=== PATIENT | male | born 1980 | race African-American/Black ===

== ENCOUNTER 2024-06-21 23:01 | Inpatient (IN) | payer MEDICARE, MEDICAID ==
[~2024-06-21] VITALS: Ht 198.1 cm; Wt 137.0 kg
[2024-06-21 23:48] LABS: Urine Bacteria None Seen /hpf (None Seen)
[2024-06-21 23:53] LABS: Basophils # (auto) 0.1 10 ^3/uL (0-0.2); Neutrophils # (auto) 4.3 10 ^3/uL (1.6-8.6); Red Blood Cells 4.95 10^6/uL (4.5-5.90)
[2024-06-21 23:55] LABS: Basophils % (auto) 0.7 % (0.0-2.0); Eosinophils # (auto) 0.1 10 ^3/uL (0-0.8); Eosinophils % (auto) 0.7 % (0.0-7.0); Lymphocytes # (auto) 2.9 10 ^3/uL (0.4-5.4); Lymphocytes % (auto) 37.4 % (10.0-50.0); Mean Corpuscular Volume 90.9 fL (80.0-100.0); Monocytes # (auto) 0.4 10 ^3/uL (0-1.3); Monocytes % (auto) 5.7 % (0.0-12.0); Neutrophils % (auto) 55.5 % (37.0-80.0); Nucleated Red Blood Cells % 0.3 %; Platelet Count (auto) 239 10^3/uL (140-450); Red Cell Distribution Width 13.6 % (11.8-14.3); White Blood Cell 7.7 10^3/uL (4.4-10.8)
[2024-06-22 00:10] LABS: Urine Blood Negative /uL (Negative); Urine Clarity Clear (Clear); Urine Color Colorless (Yellow); Urine Protein, UAD Negative (Negative); Urine Urobilinogen Normal (Negative); Urine WBC <1 /hpf (0 - 3); Urine pH 5.5 (5.0-9.0)
[2024-06-22 00:19] LABS: Hemoglobin 16.1 g/dL (13.5-17.5); Mean Corpuscular Hemoglobin 31.1 pg (28.0-32.0); Mean Corpuscular Hgb Conc. 34.5 g/dL (32.0-36.0)
[2024-06-22 00:58] LABS: Chloride 94 mmol/L (98-107); Sodium 123 mmol/L (136-145)
[2024-06-22 00:59] LABS: Anion Gap 8 (5-15); Calcium 9.6 mg/dL (8.7-10.4); Carbon Dioxide 21 mmol/L (20-31)
[2024-06-22 01:09] LABS: BUN/Creatinine Ratio 11.7 (10.0-20.0); Blood Urea Nitrogen 21 mg/dL (9-23)
[2024-06-22 01:15] LABS: Glucose 719 mg/dL (74-106)
[2024-06-22 01:50] VITALS: PULSE 110; RESP 23; O2SAT 97
[2024-06-22] MEDS: SODIUM CHLORIDE 0.9% 1,000 ML IV ONE ×2 (01:58→03:39)
[2024-06-22] MEDS: InsuLIN REG 1unit/0.01ml Soln (100units/ml) IV ONE (02:22)
[2024-06-22] MEDS ORDERED: DOCUSATE SOD 100 MG CAP PO PRN (07:15)
[2024-06-22] MEDS ORDERED: DEXTROSE (50%) 50ML SYRG IV PRN ×2 (07:15→14:30)
[2024-06-22] MEDS ORDERED: ONDANSETRON HCL 4 MG/2 ML VIAL IV PRN (07:15)
[2024-06-22] MEDS ORDERED: MORPHINE SULFATE INJ 2 MG/ml SYRG IV PRN (07:45)
[2024-06-22] MEDS ORDERED: NITROGLYCERIN 0.4 MG SL TAB SL PRN (07:45)
[2024-06-22 08:06] LABS: Basophils # (auto) 0 10 ^3/uL (0-0.2); Basophils % (auto) 0.3 % (0.0-2.0); Eosinophils # (auto) 0.1 10 ^3/uL (0-0.8); Eosinophils % (auto) 0.9 % (0.0-7.0); Hematocrit 42.1 % (41.0-53.0); Hemoglobin 15.3 g/dL (13.5-17.5); Lymphocytes # (auto) 2.4 10 ^3/uL (0.4-5.4); Lymphocytes % (auto) 35.3 % (10.0-50.0); Mean Corpuscular Hemoglobin 32.4 pg (28.0-32.0); Mean Corpuscular Hgb Conc. 36.3 g/dL (32.0-36.0); Mean Corpuscular Volume 89.3 fL (80.0-100.0); Monocytes # (auto) 0.5 10 ^3/uL (0-1.3); Neutrophils # (auto) 3.9 10 ^3/uL (1.6-8.6); Neutrophils % (auto) 56.5 % (37.0-80.0); Nucleated Red Blood Cells % 0.4 %; Platelet Count (auto) 161 10^3/uL (140-450); Red Blood Cells 4.71 10^6/uL (4.5-5.90); Red Cell Distribution Width 13.8 % (11.8-14.3); White Blood Cell 6.9 10^3/uL (4.4-10.8)
[2024-06-22] MEDS: InsuLIN REG 1unit/0.01ml Soln (100units/ml) SC SCH (08:18)
[2024-06-22 08:24] LABS: Albumin 4.5 g/dL (3.2-4.8); Alkaline Phosphatase 73 U/L (46-116); Anion Gap 22.00001 (5-15); Calcium 9.2 mg/dL (8.7-10.4); Chloride 99 mmol/L (98-107)
[2024-06-22] MEDS: SODIUM CHLORIDE 0.9% 1,000 ML IV SCH ×4 (08:24→20:59)
[2024-06-22] MEDS: ACCU-CHEK COMFORT CURVE STRIP VI SCH ×2 (08:24→15:06)
[2024-06-22 08:25] LABS: Bilirubin, Total 0.7 mg/dL (0.2-1.0); Total Protein 7.1 g/dL (5.7-8.2)
[2024-06-22 08:30] LABS: Sodium 131 mmol/L (136-145)
[2024-06-22 08:33] LABS: Carbon Dioxide < 10 mmol/L (20-31); Glucose 436 mg/dL (74-106)
[2024-06-22 09:14] VITALS: PULSE 97; RESP 23; O2SAT 98
[2024-06-22 09:26] LABS: BUN/Creatinine Ratio 8.8 (10.0-20.0)
[2024-06-22 09:28] LABS: Alanine Aminotransferase 26 U/L (7-40); Aspartate Aminotransferase 32 U/L (13-40); Blood Urea Nitrogen 13 mg/dL (9-23); Potassium 4.7 mmol/L (3.5-5.1)
[2024-06-22 14:46] LABS: Base Excess -1.7 mmol/L (-2.0-3.0)
[2024-06-22] MEDS: INSULIN DRIP 100 UNIT/100ML 100 ML IV SCH (14:56)
[2024-06-22 15:14] LABS: Basophils # (auto) 0 10 ^3/uL (0-0.2); Basophils % (auto) 0.5 % (0.0-2.0); Eosinophils # (auto) 0.1 10 ^3/uL (0-0.8); Eosinophils % (auto) 1.6 % (0.0-7.0); Hematocrit 40.9 % (41.0-53.0); Hemoglobin 14.8 g/dL (13.5-17.5); Lymphocytes # (auto) 2.1 10 ^3/uL (0.4-5.4); Lymphocytes % (auto) 35.4 % (10.0-50.0); Mean Corpuscular Hemoglobin 32.2 pg (28.0-32.0); Mean Corpuscular Hgb Conc. 36.1 g/dL (32.0-36.0); Mean Corpuscular Volume 89.1 fL (80.0-100.0); Monocytes # (auto) 0.4 10 ^3/uL (0-1.3); Monocytes % (auto) 6.9 % (0.0-12.0); Neutrophils # (auto) 3.3 10 ^3/uL (1.6-8.6); Neutrophils % (auto) 55.6 % (37.0-80.0); Nucleated Red Blood Cells % 0.6 %; Platelet Count (auto) 155 10^3/uL (140-450); Red Blood Cells 4.59 10^6/uL (4.5-5.90); Red Cell Distribution Width 13.8 % (11.8-14.3); White Blood Cell 5.9 10^3/uL (4.4-10.8)
[2024-06-22 16:25] LABS: Magnesium 2.1 mg/dL (1.6-2.6)
[2024-06-22 18:58] LABS: Chloride 106 mmol/L (98-107); Sodium 138 mmol/L (136-145)
[2024-06-22 18:59] LABS: Anion Gap 16 (5-15); Carbon Dioxide 16 mmol/L (20-31)
[2024-06-22 19:00] LABS: Calcium 9.1 mg/dL (8.7-10.4)
[2024-06-22 19:07] LABS: Glucose 244 mg/dL (74-106)
[2024-06-22 19:30] LABS: Potassium 3.9 mmol/L (3.5-5.1)
[2024-06-22 19:38] LABS: BUN/Creatinine Ratio 8.3 (10.0-20.0); Blood Urea Nitrogen 11 mg/dL (9-23)
[2024-06-22 20:00] VITALS: PULSE 105; RESP 13; O2SAT 92
[2024-06-22] MEDS: ACETAMINOPHEN 325 MG TAB PO PRN (21:51)
[2024-06-22 23:40] LABS: Chloride 105 mmol/L (98-107); Potassium 3.8 mmol/L (3.5-5.1); Sodium 134 mmol/L (136-145)
[2024-06-22 23:41] LABS: Anion Gap 8 (5-15); Carbon Dioxide 21 mmol/L (20-31)
[2024-06-22 23:46] LABS: BUN/Creatinine Ratio 8.8 (10.0-20.0); Blood Urea Nitrogen 12 mg/dL (9-23); Glucose 327 mg/dL (74-106)
[2024-06-23 03:05] LABS: Basophils # (auto) 0 10 ^3/uL (0-0.2); Basophils % (auto) 0.8 % (0.0-2.0); Eosinophils # (auto) 0.1 10 ^3/uL (0-0.8); Eosinophils % (auto) 1.9 % (0.0-7.0); Hematocrit 39.2 % (41.0-53.0); Hemoglobin 14.2 g/dL (13.5-17.5); Lymphocytes # (auto) 1.9 10 ^3/uL (0.4-5.4); Lymphocytes % (auto) 33.4 % (10.0-50.0); Mean Corpuscular Hemoglobin 31.9 pg (28.0-32.0); Mean Corpuscular Hgb Conc. 36.1 g/dL (32.0-36.0); Mean Corpuscular Volume 88.4 fL (80.0-100.0); Monocytes # (auto) 0.4 10 ^3/uL (0-1.3); Monocytes % (auto) 6.9 % (0.0-12.0); Neutrophils # (auto) 3.3 10 ^3/uL (1.6-8.6); Nucleated Red Blood Cells % 0.3 %; Platelet Count (auto) 146 10^3/uL (140-450); Red Blood Cells 4.44 10^6/uL (4.5-5.90); Red Cell Distribution Width 13.7 % (11.8-14.3); White Blood Cell 5.8 10^3/uL (4.4-10.8)
[2024-06-23 03:23] LABS: Alanine Aminotransferase 37 U/L (7-40); Albumin 4.1 g/dL (3.2-4.8); Alkaline Phosphatase 58 U/L (46-116); Anion Gap 13 (5-15); BUN/Creatinine Ratio 7.9 (10.0-20.0); Bilirubin, Total 0.6 mg/dL (0.2-1.0); Blood Urea Nitrogen 10 mg/dL (9-23); Carbon Dioxide 16 mmol/L (20-31); Chloride 106 mmol/L (98-107); Glucose 278 mg/dL (74-106); Potassium 3.6 mmol/L (3.5-5.1); Sodium 135 mmol/L (136-145)
[2024-06-23 03:43] LABS: Aspartate Aminotransferase 34 U/L (13-40)
[2024-06-23] MEDS ORDERED: DEXTROSE (50%) 50ML SYRG IV PRN ×2 (05:15→11:00)
[2024-06-23 07:20] VITALS: PULSE 87; RESP 13; O2SAT 97
[2024-06-23] MEDS: ACCU-CHEK COMFORT CURVE STRIP VI SCH ×2 (08:11→12:23)
[2024-06-23] MEDS: InsuLIN REG 1unit/0.01ml Soln (100units/ml) SC SCH ×2 (08:13→12:16)
[2024-06-23 09:00] VITALS: BP 151/97; PULSE 89; RESP 17; TEMP 98.3; O2SAT 97
[2024-06-23] MEDS ORDERED: AMLO1TAB22 PO (09:11)
[2024-06-23] MEDS ORDERED: BICT1TAB PO (09:11)
[2024-06-23] MEDS: BIKTARVY 50-200-25 MG TABLET PO SCH (10:00)
[2024-06-23 10:33] LABS: Chloride 105 mmol/L (98-107); Sodium 136 mmol/L (136-145)
[2024-06-23 10:34] LABS: Anion Gap 13 (5-15); Calcium 9.3 mg/dL (8.7-10.4); Carbon Dioxide 18 mmol/L (20-31)
[2024-06-23 10:39] LABS: BUN/Creatinine Ratio 5.3 (10.0-20.0); Blood Urea Nitrogen 6 mg/dL (9-23); Glucose 279 mg/dL (74-106)
[2024-06-23] MEDS: PANTOPRAZOLE 40 MG/10 ML VIAL INJ IV SCH (10:39)
[2024-06-23] MEDS: ENOXAPARIN SOD 60 MG/0.6 ML SYRINGE SC SCH (10:47)
[2024-06-23] MEDS: amLODIPine BESYLATE 5 MG TAB PO SCH (12:04)
[2024-06-23] MEDS: INSULIN LANTUS (GLARGINE) 1 /0.01ml (100units/ml) SC SCH (12:18)
[2024-06-23 13:00] VITALS: BP 125/71; PULSE 87; RESP 20; TEMP 98.2; O2SAT 99
[2024-06-23 15:27] LABS: Chloride 104 mmol/L (98-107); Potassium 4.1 mmol/L (3.5-5.1); Sodium 134 mmol/L (136-145)
[2024-06-23 15:28] LABS: Anion Gap 7 (5-15); Carbon Dioxide 23 mmol/L (20-31)
[2024-06-23 15:29] LABS: Calcium 9.4 mg/dL (8.7-10.4)
[2024-06-23 15:33] LABS: BUN/Creatinine Ratio 7.9 (10.0-20.0); Blood Urea Nitrogen 10 mg/dL (9-23); Glucose 334 mg/dL (74-106)
[2024-06-23 16:49] LABS: Urine Bacteria None Seen /hpf (None Seen)
[2024-06-23 17:00] VITALS: BP 121/74; PULSE 87; RESP 20; TEMP 97.7; O2SAT 95
[2024-06-23 17:15] LABS: Urine Blood Negative /uL (Negative); Urine Clarity Clear (Clear); Urine Color Light-Yellow (Yellow); Urine Protein, UAD Negative (Negative); Urine Specific Gravity 1.029 (1.001-1.035); Urine Urobilinogen Normal (Negative); Urine WBC <1 /hpf (0 - 3)
[2024-06-23 17:21] LABS: Protein, Urine 12.5 mg/dL (1-14)
[2024-06-23 17:23] LABS: Creatinine, Urine 83.01 mg/dL (30.0-125.0)
[2024-06-23 20:15] VITALS: PULSE 102; RESP 16; O2SAT 96
[2024-06-23 21:00] VITALS: BP 109/69; PULSE 96; RESP 18; TEMP 98.2; O2SAT 96
[2024-06-23] MEDS: HYDROcodone-ACET 5/325MG TAB PO PRN (22:25)
[2024-06-24] VITALS (10 sets, daily range): BP systolic 123–142; BP diastolic 68–87; PULSE 79–92; RESP 16–20; TEMP 97.7–98.5; O2SAT 96–100
[2024-06-24 06:53] LABS: Basophils # (auto) 0 10 ^3/uL (0-0.2); Basophils % (auto) 0.6 % (0.0-2.0); Eosinophils # (auto) 0.1 10 ^3/uL (0-0.8); Hematocrit 38.6 % (41.0-53.0); Hemoglobin 14.1 g/dL (13.5-17.5); Lymphocytes # (auto) 1.7 10 ^3/uL (0.4-5.4); Lymphocytes % (auto) 37.9 % (10.0-50.0); Mean Corpuscular Hemoglobin 32.3 pg (28.0-32.0); Mean Corpuscular Hgb Conc. 36.4 g/dL (32.0-36.0); Mean Corpuscular Volume 88.7 fL (80.0-100.0); Monocytes # (auto) 0.3 10 ^3/uL (0-1.3); Monocytes % (auto) 7.6 % (0.0-12.0); Neutrophils # (auto) 2.3 10 ^3/uL (1.6-8.6); Neutrophils % (auto) 51.9 % (37.0-80.0); Nucleated Red Blood Cells % 0.3 %; Platelet Count (auto) 150 10^3/uL (140-450); Red Blood Cells 4.35 10^6/uL (4.5-5.90); Red Cell Distribution Width 13.5 % (11.8-14.3); White Blood Cell 4.5 10^3/uL (4.4-10.8)
[2024-06-24 06:57] LABS: Chloride 106 mmol/L (98-107); Potassium 3.8 mmol/L (3.5-5.1); Sodium 134 mmol/L (136-145)
[2024-06-24 06:58] LABS: Anion Gap 9 (5-15); Calcium 8.9 mg/dL (8.7-10.4); Carbon Dioxide 19 mmol/L (20-31)
[2024-06-24 07:02] LABS: Uric Acid 6.2 mg/dL (3.7-9.2)
[2024-06-24 07:03] LABS: BUN/Creatinine Ratio 6.4 (10.0-20.0); Blood Urea Nitrogen 8 mg/dL (9-23); Glucose 240 mg/dL (74-106)
[2024-06-24 07:26] LABS: Phosphorus 2.6 mg/dL (2.4-5.1)
[2024-06-25] VITALS (7 sets, daily range): BP systolic 104–154; BP diastolic 68–87; PULSE 76–84; RESP 14–20; TEMP 36.6; O2SAT 96–100
[2024-06-25] MEDS: ACCU-CHEK COMFORT CURVE STRIP VI SCH (06:25)
[2024-06-25] MEDS: InsuLIN REG 1unit/0.01ml Soln (100units/ml) SC SCH (06:25)
[2024-06-25 07:40] LABS: Basophils # (auto) 0 10 ^3/uL (0-0.2); Basophils % (auto) 0.5 % (0.0-2.0); Eosinophils # (auto) 0.1 10 ^3/uL (0-0.8); Eosinophils % (auto) 1.9 % (0.0-7.0); Hematocrit 38.9 % (41.0-53.0); Hemoglobin 13.8 g/dL (13.5-17.5); Lymphocytes # (auto) 1.8 10 ^3/uL (0.4-5.4); Mean Corpuscular Hemoglobin 31.3 pg (28.0-32.0); Mean Corpuscular Hgb Conc. 35.4 g/dL (32.0-36.0); Mean Corpuscular Volume 88.4 fL (80.0-100.0); Monocytes # (auto) 0.4 10 ^3/uL (0-1.3); Monocytes % (auto) 7.8 % (0.0-12.0); Neutrophils # (auto) 2.3 10 ^3/uL (1.6-8.6); Neutrophils % (auto) 50.8 % (37.0-80.0); Nucleated Red Blood Cells % 0.1 %; Platelet Count (auto) 146 10^3/uL (140-450); Red Cell Distribution Width 13.5 % (11.8-14.3); White Blood Cell 4.6 10^3/uL (4.4-10.8)
[2024-06-25 07:55] LABS: Anion Gap 11 (5-15); Carbon Dioxide 22 mmol/L (20-31); Chloride 103 mmol/L (98-107); Potassium 3.6 mmol/L (3.5-5.1); Sodium 136 mmol/L (136-145)
[2024-06-25 07:56] LABS: Calcium 9.2 mg/dL (8.7-10.4)
[2024-06-25 08:01] LABS: BUN/Creatinine Ratio 7.3 (10.0-20.0); Blood Urea Nitrogen 9 mg/dL (9-23); Glucose 268 mg/dL (74-106)
[2024-06-25 09:05] LABS: Hepatitis B Surface Antigen Negative (Negative)
[2024-06-25 09:27] LABS: Hepatitis C Antibody Negative (Negative)
[2024-06-25] MEDS: INSULIN LANTUS (GLARGINE) 1 /0.01ml (100units/ml) SC SCH (10:00)
[2024-06-25] MEDS ORDERED: [UNRECOGNIZED DRUG - CODE] XX (13:37)
[2024-06-25] MEDS ORDERED: BLOO1KIT60 XX (13:37)
[2024-06-25] MEDS ORDERED: LANC-336 XX (13:37)
[2024-06-25] MEDS ORDERED: INSLANTI SC (13:37)
[2024-06-25] MEDS ORDERED: INSREGI SC (13:37)
[2024-06-26 09:07] LABS: QuantiFERON-TB Gold Plus Negative (Negative)
[2024-06-26 10:07] LABS: % CD 4 Pos Lymph 23.9 % (30.8-58.5); % CD 8 Pos Lymph 54.4 % (12.0-35.5); CD4/CD8 Ratio 0.44 (0.92-3.72)
[2024-06-26 13:07] LABS: % CD 3 Pos Lymph 70.4 % (57.5-86.2); % CD 4 Pos Lymph 20.6 % (30.8-58.5); % CD 8 Pos Lymph 50.6 % (12.0-35.5); % CD19+ Lymphs 15.5 % (3.3-25.4); CD4/CD8 Ratio 0.41 (0.92-3.72)
[2024-06-27 01:05] LABS: Chlamydia Trachomatis, NAA Negative (Negative); Neisseria gonorrhoeae, NAA Negative (Negative)
== END 2024-06-25 16:43 | disposition home or self-care (01) | DRG 637 ==
LOC: ER 23:01 → TELE 06-22 07:37 → TELE-CENTR 06-23 08:32
PROVIDERS: ADMIT Internal Medicine; ATTEND Internal Medicine
DX: E11.10 Type 2 diabetes mellitus with ketoacidosis without coma (principal); N17.0 Acute kidney failure with tubular necrosis; B20 Human immunodeficiency virus [HIV] disease; C85.90 Non-Hodgkin lymphoma, unspecified, unspecified site; E87.1 Hypo-osmolality and hyponatremia; E86.0 Dehydration; R63.1 Polydipsia; N20.0 Calculus of kidney; I12.9 Hypertensive chronic kidney disease with stage 1 through stage 4 chronic kidney disease, or unspecified chronic kidney disease; E11.22 Type 2 diabetes mellitus with diabetic chronic kidney disease; N18.2 Chronic kidney disease, stage 2 (mild); Z91.041 Radiographic dye allergy status; Z83.3 Family history of diabetes mellitus; Z79.899 Other long term (current) drug therapy
CPT/HCPCS: 36415; 36600; 71045; 76775; 80048; 80053; 81001; 82010; 82306; 82570; 82805; 82962; 83036; 83735; 83930; 84100; 84156; 84300; 84550; 85025; 86355; 86359; 86360; 86592; 86803; 87040; 87340; 87536; 96361; 96374; 99291; G0378; J1815; J2470

== ENCOUNTER 2024-09-12 21:26 | Emergency (ER) | payer MEDICARE, MEDICAID ==
[~2024-09-12] VITALS: Ht 198.1 cm; Wt 127.0 kg
[~2024-09-12 21:26] MED LIST: AMLO1TAB22 PO; BICT1TAB PO; BLOO1KIT60 XX; INSLANTI SC; INSREGI SC; LANC-336 XX; [UNRECOGNIZED DRUG - CODE] XX
[2024-09-12 22:24] LABS: Basophils # (auto) 0 10 ^3/uL (0-0.2); Basophils % (auto) 0.7 % (0.0-2.0); Eosinophils # (auto) 0.1 10 ^3/uL (0-0.8); Eosinophils % (auto) 1.3 % (0.0-7.0); Hematocrit 43.9 % (41.0-53.0); Hemoglobin 15.1 g/dL (13.5-17.5); Lymphocytes # (auto) 2.6 10 ^3/uL (0.4-5.4); Lymphocytes % (auto) 41.8 % (10.0-50.0); Mean Corpuscular Hemoglobin 30.5 pg (28.0-32.0); Mean Corpuscular Hgb Conc. 34.5 g/dL (32.0-36.0); Mean Corpuscular Volume 88.4 fL (80.0-100.0); Monocytes # (auto) 0.4 10 ^3/uL (0-1.3); Monocytes % (auto) 5.9 % (0.0-12.0); Neutrophils # (auto) 3.1 10 ^3/uL (1.6-8.6); Neutrophils % (auto) 50.3 % (37.0-80.0); Nucleated Red Blood Cells % 0.1 %; Platelet Count (auto) 159 10^3/uL (140-450); Red Blood Cells 4.96 10^6/uL (4.5-5.90); Red Cell Distribution Width 13.1 % (11.8-14.3); White Blood Cell 6.2 10^3/uL (4.4-10.8)
[2024-09-12 22:43] LABS: Alanine Aminotransferase 32 U/L (7-40); Albumin 4.7 g/dL (3.2-4.8); Alkaline Phosphatase 91 U/L (46-116); Anion Gap 10 (5-15); Aspartate Aminotransferase 15 U/L (13-40); Calcium 9.9 mg/dL (8.7-10.4); Carbon Dioxide 25 mmol/L (20-31); Chloride 99 mmol/L (98-107); Potassium 4.3 mmol/L (3.5-5.1); Total Protein 7.8 g/dL (5.7-8.2)
--- NOTE | 2024-09-12 22:48 | ED.PDOC ---
History of Present Illness HPI Comments A 44 year old male presents to the ED with a chief complaint of high blood sugar onset today. Patient states he noticed increased urination since last night, checked BS today and it was 465. Patient noticed he was also experiencing dizziness and fatigue. Upon assessment patient's BS was 404. Patient states he has been taking his medication. He has a past medical history of DM, HTN, HLD, Cancer. Denies nausea, vomiting, diarrhea, abdominal pain, headache, chest pain, shortness of breath. No other symptoms or modifying factors present at this time. Chief Complaint: Hyperglycemia Time Seen by MD: 22:41 Reviewed Notes: Medications, Allergies Allergies: Coded Allergies: Red Dye #40 (Allura Red) (Verified Allergy, Unknown, 06/22/24) Uncoded Allergies: RED DYE (Allergy, Unknown, 06/21/24) Home Meds Active Scripts Insulin Syringe/Needle U-100 (B-D Insulin Syringe Ultra 30G X 1/2" 1 ml) 1 Mis Mis, MIS XX TID, #200 . Prov:ERENDIRA WHITAKER RESIDENT 06/25/24 Lancets (Advocate Lancets) Lancets Mis, BOTTLE XX TID, #200 user Prov:ERENDIRA WHITAKER RESIDENT 06/25/24 Blood Glucose Monitoring Suppl (D-Care Glucometer Kit/Glu W/Device) 1 Kit Kit, K IT XX Q6HR, #1 0 Refills Please use glucometer to measure serum glucose every 6 hour. Prov:ERENDIRA WHITAKER RESIDENT 06/25/24 Insulin Regular (Human) (Novolin R) 100 Unit/Ml Inj, 0 UNITS SC ACHS for 60 Days, #5 INJ Please use insulin Regular 3 times a day before meal. Follow below instruction. Please check glucose via glucometer 3 times a day. If blood glucose is between 150 and 200 please administer 2 units of regular insulin. If blood glucose is between 200-250 please administer 4 units of regular insulin. If blood sugar is between 250 and 300 please administer 8 units of regular insulin. If blood sugar between 300-350 please administered 10 units of regular insulin. If blood sugars between 350 and 400 please administer 12 units of regular insulin. If blood sugars greater than 400 please talk to DrAbi/come to the hospital. Prov:ERENDIRA WHITAKER RESIDENT 06/25/24 Insulin Glargine (Lantus) 100 Unit/Ml Inj, 25 UNITS SC DAILY@1000 for 60 Days, #60 INJ Prov:ERENDIRA WHITAKER RESIDENT 06/25/24 Reported Medications Amlodipine Besylate (Amlodipine Besylate) 5 Mg Tab, 1 TAB PO DAILY 06/23/24 Cnkmciqjxxm-Plqoubvzdzmit-Ibkt (Biktarvy 50-200-25 mg) 1 Tab Tab, 1 TAB PO DAILY 06/23/24 Information Source: Patient Mode of Arrival: Ambulatory Severity: Moderate Timing: Hours Duration: Since onset Prehospital treatment: None Past Medical History PAST MEDICAL HISTORY: Cancer, DM, HIV, HTN Surgical History: Denies all surgeries Family History Family History: Reviewed,noncontributory to illness Social History Smoker: Non-Smoker Alcohol: Denies ETOH Use Drugs: Denies Drug Use Lives In: Home Constitutional: reports: fatigue; denies: chills, diaphoresis, fever, malaise, sweats, weakness, others EENTM: denies: blurred vision, double vision, ear bleeding, ear discharge, ear drainage, ear pain, ear ringing, eye pain, eye redness, hearing loss, mouth pain, mouth swelling, nasal discharge, nose bleeding, nose congestion, nose pain, photophobia, tearing, throat pain, throat swelling, voice changes, others Respiratory: denies: cough, hemoptysis, orthopnea, SOB at rest, shortness of breath, SOB with excertion, stridor, wheezing, others Cardiovascular: denies: chest pain, dizzy spells, diaphoresis, Dyspnea on exertion, edema, irregular heart beat, left arm pain, lightheadedness, palpitations, PND, syncope, others Gastrointestinal: denies: abdomen distended, abdominal pain, blood streaked bowels, constipated, diarrhea, dysphagia, difficulty swallowing, hematemesis, melena, nausea, poor appetite, poor fluid intake, rectal bleeding, rectal pain, vomiting, others Genitourinary: reports: others (increased urination); denies: burning, dysuria, flank pain, frequency, hematuria, incontinence, penile discharge, penile sore, pain, testicle pain, testicle swelling, urgency Neurological: reports: dizziness; denies: fainting, headache, left sided numbness, left sided weakness, numbness, paresthesia, pre-existing deficit, right sided numbness, right sided weakness, seizure, speech problems, tingling, tremors, weakness, others Musculoskeletal: denies: back pain, gout, joint pain, joint swelling, muscle pain, muscle stiffness, neck pain, others Integumetry: denies: bruises, change in color, change in hair/nails, dryness, laceration, lesions, lumps, rash, wounds, others Allergic/Immunocompromised: denies: Difficulty Healing, Frequent Infections, Hives, Itching, others Hematologic/Lymphatic: denies: anemia, blood clots, easy bleeding, easy bruising, swollen glands, others Endocrine: denies: excessive hunger, excessive sweating, excessive thirst, excessive urination, flushing, intolerance to cold, intolerance to heat, unexplained weight gain, unexplained weight loss, others Psychiatric: denies: anxiety, bipolar disorder, depression, hopeless, panic disorder, schizophrenia, sleepless, suicidal, others All Other Systems: Reviewed and Negative Physical Exam General Appearance: No Apparent Distress, Normal HEENT: Normal ENT Inspection, Pharynx Normal, TMs Normal Neck: Full Range of Motion, Non-Tender, Normal, Normal Inspection Respiratory: Chest Non-Tender, Lungs Clear, No Accessory Muscle Use, No Respiratory Distress, Normal Breath Sounds Cardiovascular: No Edema, No JVD, No Murmur, No Gallop, Normal Peripheral Pulses, Regular Rate/Rhythm Breast Exam: Deferred Gastrointestinal: No Organomegaly, Non Tender, No Pulsatile Mass, Normal Bowel Sounds, Soft Genitalia: Deferred Pelvic: Deferred Rectal: Deferred Extremities: No calf tenderness, Normal capillary refill, Normal inspection, Normal range of motion, Non-tender, No pedal edema Musculoskeletal : Apperance: Normal Neurologic: Alert, ethics officer II-XII nml as Tested, No Motor Deficits, Normal Affect, Normal Mood, No Sensory Deficits Cerebellar Function: Normal Reflexes: Normal Skin: Dry, Normal Color, Warm Lymphatic: No Adenopathy Was a procedure done? Was a procedure done?: No Differential Dx Considerations may include: DDX includes but not limited to : DKA, hyperosmolar syndrome, acute renal failure, dehydration, sepsis and others X-Ray, Labs, Meds, VS Vital Signs Date Time Temp Pulse Resp B/P (MAP) Pulse Ox O2 Delivery O2 Flow Rate FiO2 09/13/24 00:07 98.8 84 15 113/82 (92) 97 98.8 09/12/24 23:45 Room Air* 0 21 09/12/24 21:26 98.9 89 18 129/80 (96) 97 Lab Test 09/12/24 23:50 09/12/24 22:05 09/12/24 22:00 Range/Units POC Glucose 390 H 70-106 mg/dl Blood Gas Specimen Type Venous Blood Gas Sample Site Vbg - n/a Blood Gas Patient Temperature 37.0 Arterial Blood Date Drawn [id number] Marcelo Test N/a Venous Blood pH 7.413 7.320-7.430 Venous Blood pCO2 at Patient Temp 40.7 38.0-54.0 mmHg Venous Blood pO2 at Patient Temp 40.5 23.0-48.0 mmHg Venous Blood HCO3 25.4 22.0-29.0 mmol/L Venous Bld O2 Saturation (Measured) 78.5 60.0-85.0 % Venous Blood Base Excess 0.8 -2.0-3.0 mmol/L Venous Blood Total Hemoglobin 15.6 13.5-17.5 g/dL Venous Blood Oxyhemoglobin 76.5 0.0-79.0 % Venous Blood Carboxyhemoglobin 2.2 H 0.5-1.5 % Venous Blood Methemoglobin 0.3 0.0-1.5 % Blood Gas Modality Room air FiO2 % 21.0 Specimen Drawn By Madisyn augustin White Blood Count 6.2 4.4-10.8 10^3/uL Red Blood Count 4.96 4.5-5.90 10^6/uL Hemoglobin 15.1 13.5-17.5 g/dL Hematocrit 43.9 41.0-53.0 % Mean Corpuscular Volume 88.4 80.0-100.0 fL Mean Corpuscular Hemoglobin 30.5 28.0-32.0 pg Mean Corpuscular Hemoglobin Concent 34.5 32.0-36.0 g/dL Red Cell Distribution Width 13.1 11.8-14.3 % Platelet Count 159 140-450 10^3/uL Mean Platelet Volume 10.1 6.9-10.8 fL Neutrophils (%) (Auto) 50.3 37.0-80.0 % Lymphocytes (%) (Auto) 41.8 10.0-50.0 % Monocytes (%) (Auto) 5.9 0.0-12.0 % Eosinophils (%) (Auto) 1.3 0.0-7.0 % Basophils (%) (Auto) 0.7 0.0-2.0 % Neutrophils # (Auto) 3.1 1.6-8.6 10 ^3/uL Lymphocytes # (Auto) 2.6 0.4-5.4 10 ^3/uL Monocytes # (Auto) 0.4 0-1.3 10 ^3/uL Eosinophils # (Auto) 0.1 0-0.8 10 ^3/uL Basophils # (Auto) 0 0-0.2 10 ^3/uL Nucleated Red Blood Cells 0.1 % Sodium Level 134 L 136-145 mmol/L Potassium Level 4.3 3.5-5.1 mmol/L Chloride Level 99 98-107 mmol/L Carbon Dioxide Level 25 20-31 mmol/L Anion Gap 10 5-15 Blood Urea Nitrogen 15 9-23 mg/dL Creatinine 1.55 H 0.700-1.30 mg/dL Glomerular Filtration Rate Calc 57 >90 mL/min BUN/Creatinine Ratio 9.7 L 10.0-20.0 Serum Glucose 433 *H 74-106 mg/dL Calcium Level 9.9 8.7-10.4 mg/dL Total Bilirubin 1.0 0.2-1.0 mg/dL Aspartate Amino Transferase (AST) 15 13-40 U/L Alanine Aminotransferase (ALT) 32 7-40 U/L Alkaline Phosphatase 91 46-116 U/L Total Protein 7.8 5.7-8.2 g/dL Albumin 4.7 3.2-4.8 g/dL Current Medications Medications (Trade) Dose Ordered Sig/Tory Route Start Time Stop Time Status Last Admin Sodium Chloride 1,000 ml @ 1,000 mls/hr Q1H ONCE IV 09/12/24 22:00 09/12/24 22:59 DC 09/12/24 23:54 Insulin Human Regular (InsuLIN R) 4 units ONCE ONCE IV 09/12/24 22:15 09/12/24 22:16 DC 09/13/24 00:05 Time of 1ST Reevaluation: 23:11 Reevaluation 1ST: Unchanged Time of 2ND Reevaluation: 01:00 Reevaluation 2ND: Improved Patient Education/Counseling: Diagnosis, Treatment, Prognosis Family Education/Counseling: No Family Present Additional Information I reviewed the following notes from patient's past medical encounters: The following tests were ordered, and results were reviewed by me: CBC, CMP, VBG Additional Information was gathered from interviewing the following independent historians: NONE I reviewed and agreed with the following test results read by other providers: none I discussed treatment and results with medical personnel and: patient Departure 1 Departure Time of Disposition: 01:00 Impression: Primary Impression: Hyperglycemia due to diabetes mellitus Additional Impression: Polydipsia Disposition: HOME / SELF CARE / HOMELESS Condition: Stable Discharged With: Self Critical Care Note Critical Care Time?: No Stability Stability form required: No I personally scribed for BRETT VYAS MD ([email or web address]) on 09/12/24 at 22:48. Electronically submitted by Daisy Brooks ([email or web address]). I personally scribed for BRETT VYAS MD ([email or web address]) on 09/12/24 at 22:50. Electronically submitted by Daisy Brooks ([email or web address]). I personally scribed for BRETT VYAS MD ([email or web address]) on 09/12/24 at 22:52. Electronically submitted by Daisy Brooks ([email or web address]). BRETT VYAS MD Sep 12, 2024 22:48
[2024-09-12 23:04] LABS: Sodium 134 mmol/L (136-145)
[2024-09-12 23:06] LABS: Glucose 433 mg/dL (74-106)
[2024-09-12 23:07] LABS: BUN/Creatinine Ratio 9.7 (10.0-20.0); Blood Urea Nitrogen 15 mg/dL (9-23)
[2024-09-12] MEDS: SODIUM CHLORIDE 0.9% 1,000 ML IV ONE (23:54)
[2024-09-13] MEDS: InsuLIN REG 1unit/0.01ml Soln (100units/ml) IV ONE (00:05)
[2024-09-13 00:07] VITALS: BP 113/82; PULSE 84; RESP 15; TEMP 98.8; O2SAT 97
[2024-09-14] MEDS ORDERED: INSU100I61 SC ×2 (14:46)
[2024-09-14] MEDS ORDERED: EMPA1TAB PO ×2 (14:46)
[2024-09-14] MEDS ORDERED: METF-489 PO ×2 (14:46)
[2024-09-14] MEDS ORDERED: INSU100I67 SC ×2 (14:46)
== END 2024-09-13 00:32 | disposition home or self-care (01) ==
LOC: ER 21:26
DX: E11.65 Type 2 diabetes mellitus with hyperglycemia (principal); R63.1 Polydipsia; I10 Essential (primary) hypertension; E78.5 Hyperlipidemia, unspecified; Z85.9 Personal history of malignant neoplasm, unspecified; Z79.4 Long term (current) use of insulin; Z79.624 Long term (current) use of inhibitors of nucleotide synthesis; Z79.899 Other long term (current) drug therapy; Z91.09 Other allergy status, other than to drugs and biological substances
CPT/HCPCS: 36415; 36600; 80053; 82805; 82962; 85025; 96361; 96374; 99283; J1815; J7030

== ENCOUNTER 2024-09-13 11:55 | Inpatient (IN) | payer MEDICARE, MEDICAID ==
[~2024-09-13] VITALS: Ht 198.1 cm; Wt 128.8 kg
--- NOTE | 2024-09-13 12:37 | ED.PDOC ---
History of Present Illness HPI Comments 44-year-old male came in because abnormal labs. His foot doctor called him stating that he had abnormal labs which was done three days ago. Patient does have a history of diabetes. He has been having problem with his blood sugar for the past three days. He did come to this ER yesterday for high blood sugar for which he was treated and discharged. He comes back today because the foot doctor called him in this morning stating that his labs were abnormal and to go to the nearest ER. Denies any symptoms. Chief Complaint: Abnormal LAB's Time Seen by MD: 12:19 Reviewed Notes: Nurses Notes, Medications, Allergies Allergies: Coded Allergies: Red Dye #40 (Allura Red) (Verified Allergy, Unknown, 06/22/24) Uncoded Allergies: RED DYE (Allergy, Unknown, 06/21/24) Home Meds Active Scripts Insulin Syringe/Needle U-100 (B-D Insulin Syringe Ultra 30G X 1/2" 1 ml) 1 Mis Mis, MIS XX TID, #200 . Prov:ERENDIRA WHITAKER RESIDENT 06/25/24 Lancets (Advocate Lancets) Lancets Mis, BOTTLE XX TID, #200 user Prov:ERENDIRA WHITAKER RESIDENT 06/25/24 Blood Glucose Monitoring Suppl (D-Care Glucometer Kit/Glu W/Device) 1 Kit Kit, KIT XX Q6HR, #1 0 Refills Please use glucometer to measure serum glucose every 6 hour. Prov:ERENDIRA WHTIAKER RESIDENT 06/25/24 Insulin Regular (Human) (Novolin R) 100 Unit/Ml Inj, 0 UNITS SC ACHS for 60 Days, #5 INJ Please use insulin Regular 3 times a day before meal. Follow below instruction. Please check glucose via glucometer 3 times a day. If blood glucose is between 150 and 200 please administer 2 units of regular insulin. If blood glucose is between 200-250 please administer 4 units of regular insulin. If blood sugar is between 250 and 300 please administer 8 units of regular insulin. If blood sugar between 300-350 please administered 10 units of regular insulin. If blood sugars between 350 and 400 please administer 12 units of regular insulin. If blood sugars greater than 400 please talk to /come to the hospital. Prov:ERENDIRA WHITAKER RESIDENT 06/25/24 Insulin Glargine (Lantus) 100 Unit/Ml Inj, 25 UNITS SC DAILY@1000 for 60 Days, #60 INJ Prov:ERENDIRA WHITAKER RESIDENT 06/25/24 Reported Medications Amlodipine Besylate (Amlodipine Besylate) 5 Mg Tab, 1 TAB PO DAILY 06/23/24 Whhpofzlpsm-Ifemkjykcspdh-Lhzh (Biktarvy 50-200-25 mg) 1 Tab Tab, 1 TAB PO DAILY 06/23/24 Information Source: Patient Mode of Arrival: Ambulatory Severity: Moderate Timing: Days Duration: Since onset Past Medical History PAST MEDICAL HISTORY: Cancer, DM, HIV, HTN Surgical History: Denies all surgeries Family History Family History: Reviewed,noncontributory to illness Social History Smoker: Non-Smoker Alcohol: Denies ETOH Use Drugs: Denies Drug Use Lives In: Home Constitutional: denies: chills, diaphoresis, fatigue, fever, malaise, sweats, weakness, others EENTM: denies: blurred vision, double vision, ear bleeding, ear discharge, ear drainage, ear pain, ear ringing, eye pain, eye redness, hearing loss, mouth pain, mouth swelling, nasal discharge, nose bleeding, nose congestion, nose pain, photophobia, tearing, throat pain, throat swelling, voice changes, others Respiratory: denies: cough, hemoptysis, orthopnea, SOB at rest, shortness of breath, SOB with excertion, stridor, wheezing, others Cardiovascular: denies: chest pain, dizzy spells, diaphoresis, Dyspnea on exertion, edema, irregular heart beat, left arm pain, lightheadedness, palpitations, PND, syncope, others Gastrointestinal: denies: abdomen distended, abdominal pain, blood streaked bowels, constipated, diarrhea, dysphagia, difficulty swallowing, hematemesis, melena, nausea, poor appetite, poor fluid intake, rectal bleeding, rectal pain, vomiting, others Genitourinary: denies: burning, dysuria, flank pain, frequency, hematuria, incontinence, penile discharge, penile sore, pain, testicle pain, testicle swelling, urgency, others Neurological: denies: dizziness, fainting, headache, left sided numbness, left sided weakness, numbness, paresthesia, pre-existing deficit, right sided numbness, right sided weakness, seizure, speech problems, tingling, tremors, weakness, others Musculoskeletal: denies: back pain, gout, joint pain, joint swelling, muscle pain, muscle stiffness, neck pain, others Integumetry: denies: bruises, change in color, change in hair/nails, dryness, laceration, lesions, lumps, rash, wounds, others Allergic/Immunocompromised: denies: Difficulty Healing, Frequent Infections, Hives, Itching, others Hematologic/Lymphatic: denies: anemia, blood clots, easy bleeding, easy bruising, swollen glands, others Endocrine: denies: excessive hunger, excessive sweating, excessive thirst, excessive urination, flushing, intolerance to cold, intolerance to heat, unexplained weight gain, unexplained weight loss, others Psychiatric: denies: anxiety, bipolar disorder, depression, hopeless, panic disorder, schizophrenia, sleepless, suicidal, others Physical Exam General Appearance: Moderate Distress HEENT: Normal ENT Inspection, Pharynx Normal, TMs Normal Neck: Full Range of Motion, Non-Tender, Normal, Normal Inspection Respiratory: Chest Non-Tender, Lungs Clear, No Accessory Muscle Use, No Respiratory Distress, Normal Breath Sounds Cardiovascular: No Edema, No JVD, No Murmur, No Gallop, Normal Peripheral Pulses, Regular Rate/Rhythm Breast Exam: Deferred Gastrointestinal: No Organomegaly, Non Tender, No Pulsatile Mass, Normal Bowel Sounds, Soft Genitalia: Deferred Pelvic: Deferred Rectal: Deferred Extremities: No calf tenderness, Normal capillary refill, Normal inspection, Normal range of motion, Non-tender, No pedal edema Musculoskeletal : Apperance: Normal Neurologic: Alert, lumber press operator II-XII nml as Tested, No Motor Deficits, Normal Affect, Normal Mood, No Sensory Deficits Cerebellar Function: Normal Reflexes: Normal Skin: Dry, Normal Color, Warm Peripheral Pulses: 3+ Radial (R), 3+ Radial (L) Lymphatic: No Adenopathy Was a procedure done? Was a procedure done?: No Differential Dx Considerations may include: Hyperglycemia Electrolyte imbalance X-Ray, Labs, Meds, VS Vital Signs Date Time Temp Pulse Resp B/P (MAP) Pulse Ox O2 Delivery O2 Flow Rate FiO2 09/13/24 12:29 97.0 92 16 134/82 (99) 96 Lab Test 09/13/24 12:56 09/13/24 12:27 Range/Units White Blood Count 5.7 4.4-10.8 10^3/uL Red Blood Count 4.84 4.5-5.90 10^6/uL Hemoglobin 14.6 13.5-17.5 g/dL Hematocrit 43.0 41.0-53.0 % Mean Corpuscular Volume 89.0 80.0-100.0 fL Mean Corpuscular Hemoglobin 30.1 28.0-32.0 pg Mean Corpuscular Hemoglobin Concent 33.9 32.0-36.0 g/dL Red Cell Distribution Width 13.2 11.8-14.3 % Platelet Count 151 140-450 10^3/uL Mean Platelet Volume 9.9 6.9-10.8 fL Neutrophils (%) (Auto) 51.2 37.0-80.0 % Lymphocytes (%) (Auto) 41.5 10.0-50.0 % Monocytes (%) (Auto) 5.4 0.0-12.0 % Eosinophils (%) (Auto) 1.3 0.0-7.0 % Basophils (%) (Auto) 0.6 0.0-2.0 % Neutrophils # (Auto) 2.9 1.6-8.6 10 ^3/uL Lymphocytes # (Auto) 2.3 0.4-5.4 10 ^3/uL Monocytes # (Auto) 0.3 0-1.3 10 ^3/uL Eosinophils # (Auto) 0.1 0-0.8 10 ^3/uL Basophils # (Auto) 0 0-0.2 10 ^3/uL Nucleated Red Blood Cells 0.2 % Sodium Level 136 136-145 mmol/L Potassium Level 3.9 3.5-5.1 mmol/L Chloride Level 104 98-107 mmol/L Carbon Dioxide Level 25 20-31 mmol/L Anion Gap 7 5-15 Blood Urea Nitrogen 13 9-23 mg/dL Creatinine 1.38 H 0.700-1.30 mg/dL Glomerular Filtration Rate Calc 65 >90 mL/min BUN/Creatinine Ratio 9.4 L 10.0-20.0 Serum Glucose 297 #H 74-106 mg/dL Calcium Level 9.7 8.7-10.4 mg/dL POC Glucose 331 H 70-106 mg/dl Patient alert. Came in for abnormal labs. Vitals stable. Answering all questions pain Reviewed his labs from Tuesday. His potassium was 5.9 with blood sugar of more than 600. Explained to the patient. Continue cardiac monitoring. Time of 1ST Reevaluation: 12:35 Reevaluation 1ST: Unchanged Patient Education/Counseling: Diagnosis, Treatment, Prognosis Family Education/Counseling: No Family Present Departure 1 Departure Time of Disposition: 12:36 Impression: Primary Impression: Uncontrolled diabetes mellitus Qualified Codes: E13.65 - Other specified diabetes mellitus with hyperglycemia Disposition: ADMITTED INPATIENT Admit to: Med Surg Condition: Guarded Critical Care Note Critical Care Time?: Yes (90 min-critical care time only) Stability Stability form required: No Heart Score Heart Score: Heart Score Response (Comments) Value History N/A 0 EKG N/A 0 Age N/A 0 Risk Factors N/A 0 Troponin N/A 0 Total 0 MARCUS SHANNON MD Sep 13, 2024 12:37
[2024-09-13 13:31] LABS: Basophils # (auto) 0 10 ^3/uL (0-0.2); Basophils % (auto) 0.6 % (0.0-2.0); Eosinophils # (auto) 0.1 10 ^3/uL (0-0.8); Eosinophils % (auto) 1.3 % (0.0-7.0); Hemoglobin 14.6 g/dL (13.5-17.5); Lymphocytes # (auto) 2.3 10 ^3/uL (0.4-5.4); Lymphocytes % (auto) 41.5 % (10.0-50.0); Mean Corpuscular Hemoglobin 30.1 pg (28.0-32.0); Mean Corpuscular Hgb Conc. 33.9 g/dL (32.0-36.0); Monocytes # (auto) 0.3 10 ^3/uL (0-1.3); Monocytes % (auto) 5.4 % (0.0-12.0); Neutrophils # (auto) 2.9 10 ^3/uL (1.6-8.6); Neutrophils % (auto) 51.2 % (37.0-80.0); Nucleated Red Blood Cells % 0.2 %; Platelet Count (auto) 151 10^3/uL (140-450); Red Blood Cells 4.84 10^6/uL (4.5-5.90); Red Cell Distribution Width 13.2 % (11.8-14.3); White Blood Cell 5.7 10^3/uL (4.4-10.8)
[2024-09-13 13:37] LABS: Anion Gap 7 (5-15); Carbon Dioxide 25 mmol/L (20-31); Chloride 104 mmol/L (98-107); Potassium 3.9 mmol/L (3.5-5.1); Sodium 136 mmol/L (136-145)
[2024-09-13 13:38] LABS: Calcium 9.7 mg/dL (8.7-10.4)
[2024-09-13 13:43] LABS: BUN/Creatinine Ratio 9.4 (10.0-20.0); Blood Urea Nitrogen 13 mg/dL (9-23)
[2024-09-13 13:52] LABS: Glucose 297 mg/dL (74-106)
[2024-09-13] MEDS ORDERED: DOCUSATE SOD 100 MG CAP PO PRN (15:30)
[2024-09-13] MEDS ORDERED: ACETAMINOPHEN 325 MG TAB PO PRN (15:30)
[2024-09-13] MEDS ORDERED: ONDANSETRON HCL 4 MG/2 ML VIAL IV PRN (15:30)
[2024-09-13] MEDS ORDERED: DEXTROSE (50%) 50ML SYRG IV PRN (15:30)
--- NOTE | 2024-09-13 15:32 | DVHHP2 ---
History of Present Illness Reason for Visit: Abnormal labs History of Present Illness Ignacio Mcgee is a 44-year-old male with past medical history of hypertension, HIV, and recent diagnosis of diabetes. Patient states he was called by his senior physical therapist and told to come to the hospital due to his labs being abnormal. Patient was diagnosed with type 2 diabetes in June 2024 and has been struggling to get his blood sugars under control. Currently he is only on insulin, no PO medications for his diabetes. Cardiovascular: HTN Heme/Onc: Cancer (H/O lymphoma) Infectious disease: HIV Endocrine: Diabetes Past Surgical History: Appendectomy Family History: None Smoke: No ALCOHOL: none Drugs: None Lives: with Family Domestic Violence: Neg Review of Systems Constitutional: No: Fever, Chills, Sweats, Weakness, Malaise, Other Eyes: No: Pain, Vision change, Conjunctivae inflammation, Eyelid inflammation, Other, Redness ENT: No: Ear pain, Ear discharge, Nose pain, Nose discharge, Nose congestion, Mouth pain, Mouth swelling, Throat pain, Throat swelling, Other Respiratory: No: Cough, Dry, Shortness of breath, SOB with excertion, Wheezing, Hemoptysis, Pleuritic Pain, Sputum, Wheezing, Other Cardiovascular: No: Chest Pain, Palpitations, Orthopnea, Paroxysmal Noc. Dyspnea, Edema, Lt Headedness, Other Gastrointestinal: No: Nausea, Vomiting, Abdominal Pain, Diarrhea, Constipation, Melena, Hematochezia, Other Genitourinary: No Dysuria, No Frequency, No Incontinence, No Hematuria, No Retention, No Other Musculoskeletal: No: other, neck pain, shoulder pain, arm pain, back pain, hand pain, leg pain, foot pain Skin: No: Rash, Lesions, Jaundice, Bruising, Other Neurological: No: Weakness, Numbness, Incoordination, Change in speech, Confusion, Seizures, Other Other Abnormal labs Allergies: Coded Allergies: Red Dye #40 (Allura Red) (Verified Allergy, Unknown, 06/22/24) Uncoded Allergies: RED DYE (Allergy, Unknown, 06/21/24) Medications Current Medications Medications Dose Ordered Sig/Tory Route Start Time Stop Time Status Last Admin Dose Admin Sodium Chloride 10 ml Q8HR IV 09/13/24 22:00 UNV Ondansetron HCl 4 mg Q4HP PRN IV 09/13/24 15:30 UNV Docusate Sodium 100 mg BIDPRN PRN PO 09/13/24 15:30 UNV Acetaminophen 650 mg Q6HP PRN PO 09/13/24 15:30 UNV Amlodipine Besylate 5 mg DAILY PO 09/14/24 10:00 UNV Insulin Glargine 25 units DAILY@1000 SC 09/14/24 10:00 UNV Patient Own Medication 1 tab DAILY PO 09/14/24 10:00 UNV Exam Vital Signs Vital Signs Date Time Temp Pulse Resp B/P (MAP) Pulse Ox O2 Delivery O2 Flow Rate FiO2 09/13/24 12:29 97.0 92 16 134/82 (99) 96 General Appearance: Alert, Oriented X3, Cooperative, No acute distress HEENT: Atraumatic, PERRLA Respiratory: Clear to auscultation, Normal air movement Cardiovascular: Regular rate, Normal S1, Normal S2, No murmurs Abdominal: Normal bowel sounds, Soft, No tenderness Extremities: No clubbing, No cyanosis, No edema, Normal pulses Skin: No rashes, No breakdown, No significant lesion Neuro: Normal gait, Normal speech, Strength at 5/5 X4 ext Psych/Mental Status: Mental status NL, Mood NL Labs/Xrays Labs Test 09/13/24 12:56 09/13/24 12:27 Range/Units White Blood Count 5.7 4.4-10.8 10^3/uL Red Blood Count 4.84 4.5-5.90 10^6/uL Hemoglobin 14.6 13.5-17.5 g/dL Hematocrit 43.0 41.0-53.0 % Mean Corpuscular Volume 89.0 80.0-100.0 fL Mean Corpuscular Hemoglobin 30.1 28.0-32.0 pg Mean Corpuscular Hemoglobin Concent 33.9 32.0-36.0 g/dL Red Cell Distribution Width 13.2 11.8-14.3 % Platelet Count 151 140-450 10^3/uL Mean Platelet Volume 9.9 6.9-10.8 fL Neutrophils (%) (Auto) 51.2 37.0-80.0 % Lymphocytes (%) (Auto) 41.5 10.0-50.0 % Monocytes (%) (Auto) 5.4 0.0-12.0 % Eosinophils (%) (Auto) 1.3 0.0-7.0 % Basophils (%) (Auto) 0.6 0.0-2.0 % Neutrophils # (Auto) 2.9 1.6-8.6 10 ^3/uL Lymphocytes # (Auto) 2.3 0.4-5.4 10 ^3/uL Monocytes # (Auto) 0.3 0-1.3 10 ^3/uL Eosinophils # (Auto) 0.1 0-0.8 10 ^3/uL Basophils # (Auto) 0 0-0.2 10 ^3/uL Nucleated Red Blood Cells 0.2 % Sodium Level 136 136-145 mmol/L Potassium Level 3.9 3.5-5.1 mmol/L Chloride Level 104 98-107 mmol/L Carbon Dioxide Level 25 20-31 mmol/L Anion Gap 7 5-15 Blood Urea Nitrogen 13 9-23 mg/dL Creatinine 1.38 H 0.700-1.30 mg/dL Glomerular Filtration Rate Calc 65 >90 mL/min BUN/Creatinine Ratio 9.4 L 10.0-20.0 Serum Glucose 297 #H 74-106 mg/dL Calcium Level 9.7 8.7-10.4 mg/dL POC Glucose 331 H 70-106 mg/dl Assessment/Plan Assessment/Plan Assessment: Uncontrolled diabetes mellitus, Hypertension, HIV, Plan: Admit to Med-Surg, Consider adding PO diabetic medications for better glucose control, Accu checks Q AC&HS with moderate dose sliding scale, Manage/Monitor electrolytes closely, Home medications reconciled, Plan discussed with: Patient My Orders Orders - REED BROWN Procedure Category Date Status Time Admit ADMIT 09/13/24 Transmitted 15:19 Code Status CODE 09/13/24 Transmitted 15:19 2 Gm Sodium Diet DIET 09/13/24 Transmitted Dinner Sodium Chloride Lock PHA 09/13/24 Logged (Saline Lock Ns) 22:00 Ondansetron Hcl PHA 09/13/24 Logged (Zofran) 15:30 Docusate Sodium PHA 09/13/24 Logged Capsule (Colace 15:30 Complete Blood Count LAB 09/14/24 Verified 04:00 Comprehensive LAB 09/14/24 Verified Metabolic Panel 04:00 Condition: Serious NGUYEN 09/13/24 In Process 15:19 Acetaminophen Tablet PHA 09/13/24 Logged (Tylenol Tablet) 15:30 Amlodipine Tablet PHA 09/14/24 Logged (Norvasc Tablet) 10:00 Insulin Lantus PHA 09/14/24 Logged (Glargine) (Lantus) 10:00 (NF) PHA 09/14/24 Logged [id number] 10:00 Date of Service: Sep 13, 2024 Billing Provider: REED BROWN Common Visit Codes: [id number] INP/OBS CARE (MOD) REED BROWN Sep 13, 2024 15:32
[2024-09-13] MEDS: ACCU-CHEK COMFORT CURVE STRIP VI SCH (17:00)
[2024-09-13 17:14] VITALS: BP 120/76; PULSE 80; RESP 17; TEMP 98.2; O2SAT 94
[2024-09-13 17:15] VITALS: BP 120/76; PULSE 80; RESP 17; TEMP 98.5; O2SAT 94
[2024-09-13] MEDS: InsuLIN REG 1unit/0.01ml Soln (100units/ml) SC SCH ×2 (17:44→22:40)
[2024-09-13 20:00] VITALS: PULSE 85; RESP 18; O2SAT 95
[2024-09-13 21:00] VITALS: BP 124/77; PULSE 85; RESP 18; TEMP 97.6; O2SAT 95
[2024-09-13] MEDS: SODIUM CHLOR 0.9% PF (SALINE LOCK) 10ML VIAL/SYR IV SCH (22:10)
[2024-09-14 01:00] VITALS: BP 118/79; PULSE 78; RESP 19; TEMP 97.9; O2SAT 97
[2024-09-14 05:00] VITALS: BP 113/69; PULSE 74; RESP 20; TEMP 97.7; O2SAT 96
[2024-09-14 06:25] LABS: Basophils # (auto) 0 10 ^3/uL (0-0.2); Basophils % (auto) 0.5 % (0.0-2.0); Eosinophils # (auto) 0.1 10 ^3/uL (0-0.8); Eosinophils % (auto) 2.1 % (0.0-7.0); Hematocrit 39.8 % (41.0-53.0); Hemoglobin 13.8 g/dL (13.5-17.5); Lymphocytes % (auto) 47.1 % (10.0-50.0); Mean Corpuscular Hemoglobin 30.6 pg (28.0-32.0); Mean Corpuscular Hgb Conc. 34.8 g/dL (32.0-36.0); Mean Corpuscular Volume 87.9 fL (80.0-100.0); Monocytes # (auto) 0.3 10 ^3/uL (0-1.3); Monocytes % (auto) 6.1 % (0.0-12.0); Neutrophils # (auto) 1.9 10 ^3/uL (1.6-8.6); Neutrophils % (auto) 44.2 % (37.0-80.0); Nucleated Red Blood Cells % 0.2 %; Platelet Count (auto) 134 10^3/uL (140-450); Red Blood Cells 4.53 10^6/uL (4.5-5.90); White Blood Cell 4.2 10^3/uL (4.4-10.8)
[2024-09-14 06:37] LABS: Alanine Aminotransferase 29 U/L (7-40); Albumin 3.9 g/dL (3.2-4.8); Alkaline Phosphatase 61 U/L (46-116); Anion Gap 7 (5-15); Aspartate Aminotransferase 20 U/L (13-40); BUN/Creatinine Ratio 7.4 (10.0-20.0); Blood Urea Nitrogen 9 mg/dL (9-23); Calcium 9.3 mg/dL (8.7-10.4); Carbon Dioxide 26 mmol/L (20-31); Chloride 106 mmol/L (98-107); Sodium 139 mmol/L (136-145)
[2024-09-14 06:38] LABS: Bilirubin, Total 1.1 mg/dL (0.2-1.0); Total Protein 6.6 g/dL (5.7-8.2)
[2024-09-14 06:42] LABS: Glucose 167 mg/dL (74-106); Potassium 3.3 mmol/L (3.5-5.1)
[2024-09-14 08:43] VITALS: BP 118/79; PULSE 72; RESP 18; TEMP 97.4; O2SAT 95
[2024-09-14] MEDS: BICTEGRAVIR EMTRICITABINE TENOFOVIR PO SCH (10:03)
[2024-09-14] MEDS: POTASSIUM EFFERVESENT TAB 25 MEQ GT ONE (10:05)
[2024-09-14] MEDS: INSULIN LANTUS (GLARGINE) 1 /0.01ml (100units/ml) SC SCH (10:05)
[2024-09-14] MEDS: amLODIPine BESYLATE 5 MG TAB PO SCH (10:12)
[2024-09-14] MEDS ORDERED: DEXTROSE (50%) 50ML SYRG IV PRN (10:15)
[2024-09-14] MEDS: ACCU-CHEK COMFORT CURVE STRIP VI SCH (11:51)
[2024-09-14] MEDS: InsuLIN REG 1unit/0.01ml Soln (100units/ml) SC SCH (11:51)
[2024-09-14 12:42] VITALS: BP 124/74; PULSE 76; RESP 18; TEMP 98.1; O2SAT 97
[2024-09-14] MEDS ORDERED: EMPA1TAB PO ×2 (14:46)
[2024-09-14] MEDS ORDERED: INSU100I67 SC ×2 (14:46)
[2024-09-14] MEDS ORDERED: METF-489 PO ×2 (14:46)
[2024-09-14] MEDS ORDERED: INSU100I61 SC ×2 (14:46)
[2024-09-14 15:10] LABS: Urine Bacteria None Seen /hpf (None Seen)
[2024-09-14 15:47] LABS: Urine Blood Negative /uL (Negative); Urine Clarity Clear (Clear); Urine Color Yellow (Yellow); Urine Protein, UAD Negative (Negative); Urine Specific Gravity 1.028 (1.001-1.035); Urine Urobilinogen 2 mg/dL (Negative); Urine WBC 1 /hpf (0 - 3); Urine pH 5.5 (5.0-9.0)
[2024-09-14 15:57] LABS: Amphetamine Screen, Urine Neg (NEGATIVE); Barbiturate Scree,Urine Neg (NEGATIVE); Benzodiazephine Screen, Urine Neg (NEGATIVE); Cannabinoid Screen, Urine Neg (NEGATIVE); Cocaine Screen, Urine Neg (NEGATIVE); Opiate Scree,Urine Neg (NEGATIVE); Phencyclidine Screen, Urine Neg (NEGATIVE)
--- NOTE | 2024-09-14 20:10 | DVHDSRES ---
Discharge Summary Date of Admission Resident Creating Document: PAT NEW RESIDENT Sep 13, 2024 at 15:19 Date of Discharge: Sep 14, 2024 Admitting Diagnosis Uncontrolled Blood Glucose with high blood pressure. Labs/Diagnostic Data: Laboratory Results Test 09/14/24 14:54 09/14/24 14:29 09/14/24 13:14 09/14/24 04:58 Urine Color Yellow (Yellow) Urine Clarity Clear (Clear) Urine pH 5.5 (5.0-9.0) Urine Specific [place] 1.028 (1.001-1.035) Urine Protein Negative (Negative) Urine Ketones Negative (Negative) Urine Blood Negative /uL (Negative) Urine Nitrite Negative (Negative) Urine Bilirubin Negative (Negative) Urine Urobilinogen 2 mg/dL (Negative) Urine Leukocyte Esterase Negative /uL (Negative) Urine RBC None seen /hpf (0 - 3) Urine WBC 1 /hpf (0 - 3) Urine Squamous Epithelial Cells Few /hpf (<5) Urine Bacteria None seen /hpf (None Seen) Urine Glucose 4+ mg/dL (Normal) Urine Opiates Screen Neg (NEGATIVE) Urine Fentanyl Screen Neg (NEGATIVE) Urine Barbiturates Screen Neg (NEGATIVE) Urine Phencyclidine Screen Neg (NEGATIVE) Urine Amphetamines Screen Neg (NEGATIVE) Urine Benzodiazepines Screen Neg (NEGATIVE) Urine Cocaine Screen Neg (NEGATIVE) Urine Cannabinoids Screen Neg (NEGATIVE) POC Glucose 387 mg/dl (70-106) Mean Platelet Volume 9.9 fL (6.9-10.8) Neutrophils # (Auto) 1.9 10 ^3/uL (1.6-8.6) Lymphocytes # (Auto) 2.0 10 ^3/uL (0.4-5.4) Monocytes # (Auto) 0.3 10 ^3/uL (0-1.3) Eosinophils # (Auto) 0.1 10 ^3/uL (0-0.8) Basophils # (Auto) 0 10 ^3/uL (0-0.2) Sodium Level 139 mmol/L (136-145) Potassium Level 3.3 mmol/L (3.5-5.1) Chloride Level 106 mmol/L (98-107) Carbon Dioxide Level 26 mmol/L (20-31) Anion Gap 7 (5-15) Blood Urea Nitrogen 9 mg/dL (9-23) Creatinine 1.22 mg/dL (0.700-1.30) Glomerular Filtration Rate Calc 75 mL/min (>90) BUN/Creatinine Ratio 7.4 (10.0-20.0) Serum Glucose 167 mg/dL (74-106) Hemoglobin A1c > 14.0 % A1C (<5.7) Calcium Level 9.3 mg/dL (8.7-10.4) Total Bilirubin 1.1 mg/dL (0.2-1.0) Aspartate Amino Transferase (AST) 20 U/L (13-40) Alanine Aminotransferase (ALT) 29 U/L (7-40) Alkaline Phosphatase 61 U/L (46-116) Total Protein 6.6 g/dL (5.7-8.2) Albumin 3.9 g/dL (3.2-4.8) Thyroid Stimulating Hormone (TSH) 0.99 uIU/mL (0.55-4.78) Other Laboratory Tests 09/14/24 04:58 Brief Hx & Hospital Course: Hospital Course: A 53-year-old male with a history of diabetes, hypertension, coronary artery disease (post-CABG), and end-stage renal disease on hemodialysis, presented with bloody vomiting, abdominal pain, diarrhea, nausea, and weakness. He experienced ten episodes of bloody vomiting over two days. The patient has a history of heavy alcohol use, smoking, and marijuana use. Upon examination, he felt better since admission, with no current nausea or bloody vomiting, but still had mild abdominal pain which subsided. The patient received Diabetic education, 25 lantus and mealtime 5 units of short acting insulin. Medical Conditions Treated in Hospital: 1. Uncontrolled diabetes mellitus, on Insulin. HbA1c 14. 2. Essential Hypertension, 3. HIV on Biktarvy 4. Hisotry of lymphoma 5. History Appendectomy 6. Obesity grade I Follow up: 1. PCP follow up in 1-2 weeks. Close follow up of HbA1c needed in 3-4 months. 2. Follow up the CD4, CD8 counts New medication at discharge: 1. Insulin pens. 2. Metformin 500 bid. 3. Jardiance 10 mg daily. Case discussed with Dr. Resendez. Discharge discussion needed 41 minutes of planning. Patient agreeable to the plan. Consults/Reason for consult None Condition at Discharge: Good Final Diagnosis/Problems List 1. Uncontrolled diabetes mellitus, on Insulin. HbA1c 14. 2. Essential Hypertension, 3. HIV on Biktarvy 4. Hisotry of lymphoma 5. History Appendectomy 6. Obesity grade I Discharge Disposition: Home Discharge Instruct/Medications Diet: Cardiac 2g Na,low cholest Activity: No Restrictions, As Tolerated Follow Up/Referral: Folow up with the PCP within one week after discharge for the glucemic control Medications: Lantus 25 units, night time Aspart 5 three times daily, 15 minutes before meal Metformin 500ER two time daily Jardiance 10 mg daily continue home medicine Discharge Statement: "Patient was advised to return to the ER or call 911 if any headaches, dizziness, shortness of breath, chest pain, abdominal pain, bleeding, fevers, or worsening of medical condition. Patient was counseled about treatment plan, medications, possible side effects, patientverbalized understanding. All questions were answered to the best of my ability. This discharge took greater then 30 minutes in planning, reviewing documentation, counseling the patient, and discussing with other team members." ASSESSMENT ASSESSMENT Assessment uncontrolled Diabetes Melitus Date of Service: Sep 14, 2024 Billing Provider: RADHA URRUTIA MD Common Visit Codes: [id number] DISCH DAY >30min PAT NEW RESIDENT Sep 14, 2024 20:10 RADHA URRUTIA MD Sep 17, 2024 11:57
[2024-09-14] MEDS ORDERED: InsuLIN REG 1unit/0.01ml Soln (100units/ml) SC SCH (22:00)
[2024-09-15 05:07] LABS: Basos 1 % (Not Estab.); Eos 1 % (Not Estab.); Eos (Absolute) 0.1 x10E3/uL (0.0-0.4); Hematocrit 44.1 % (37.5-51.0); Hemoglobin 15.2 g/dL (13.0-17.7); Immature Granulocytes (Abs) 0 x10E3/uL (0.0-0.1); Lymphs 45 % (Not Estab.); Lymphs (Absolute) 2.4 x10E3/uL (0.7-3.1); MCH 30.8 pg (26.6-33.0); MCHC 34.5 g/dL (31.5-35.7); MCV 90 fL (79-97); Monocytes 5 % (Not Estab.); Monocytes (Absolute) 0.3 x10E3/uL (0.1-0.9); Neutrophils 48 % (Not Estab.); Neutrophils (Absolute) 2.6 x10E3/uL (1.4-7.0); Platelets 167 x10E3/uL (150-450); RBC 4.93 x10E6/uL (4.14-5.80); RDW 12.8 % (11.6-15.4); WBC 5.4 x10E3/uL (3.4-10.8)
[2024-09-15 16:06] LABS: % CD 4 Pos Lymph 21.1 % (30.8-58.5); % CD 8 Pos Lymph 59.1 % (12.0-35.5); Absolute CD 4 Helper 506 /uL (359-1519); CD4/CD8 Ratio 0.36 (0.92-3.72)
== END 2024-09-14 15:22 | disposition home or self-care (01) | DRG 639 ==
LOC: ER 11:55 → OVERFLOW 15:19 → WEST WING 15:21
PROVIDERS: ADMIT Student in an Organized Health Care Education/Training Program; ATTEND Student in an Organized Health Care Education/Training Program
DX: E11.65 Type 2 diabetes mellitus with hyperglycemia (principal); I10 Essential (primary) hypertension; E66.9 Obesity, unspecified; Z91.041 Radiographic dye allergy status; Z85.72 Personal history of non-Hodgkin lymphomas; Z68.32 Body mass index [BMI] 32.0-32.9, adult; Z79.4 Long term (current) use of insulin
CPT/HCPCS: 36415; 80048; 80053; 80307; 81001; 82962; 83036; 84443; 85025; 86360; 99291; G0378; J1815